=== PATIENT | male | born 1960 | race Caucasian/White ===

== ENCOUNTER 2019-03-26 11:57 | Day surgery (SDC) | payer BC ==
[2019-03-22 13:59] VITALS: BMI 31.5
[2019-03-26] MEDS ORDERED: LIDOCAINE 1% 20 ML VIAL (10MG/ML) FOR IV START INTRADERMA PRN (12:14)
[2019-03-26] MEDS ORDERED: LACTATED RINGERS 1,000 ML IV SCH (12:14)
[2019-03-26 12:20] VITALS: RESP 16; TEMP 98.2
[2019-03-26] MEDS ORDERED: PROPOFOL 10 MG/ML 20 ML VIAL IV ONE (13:01)
--- NOTE | 2019-03-26 13:07 | P.GSHP ---
History of Present Illness H&P Date: 03/26/19 Chief Complaint: Screening colonoscopy This is a 58-year-old male referred from Dr. Sofia juarez. Patient rents today for screening colonoscopy. Past Medical History Past Medical History: Hypertension History of Any Multi-Drug Resistant Organisms: None Reported Past Surgical History: No Surgical Hx Reported Additional Past Surgical History / Comment(s): colonoscopy Past Anesthesia/Blood Transfusion Reactions: No Reported Reaction Smoking Status: Former smoker - Past Family History Mother Family Medical History: No Reported History Medications and Allergies Home Medications Medication Instructions Recorded Confirmed Type Metoprolol Tartrate [Lopressor] 50 mg PO DAILY 03/22/19 03/26/19 History Red Yeast Rice 600 mg PO DAILY 03/22/19 03/26/19 History Ubidecarenone [Co Q-10] 100 mg PO DAILY 03/22/19 03/26/19 History Allergies Allergy/AdvReac Type Severity Reaction Status Date / Time No Known Allergies Allergy Verified 03/22/19 13:53 Surgical - Exam Vital Signs Temp Pulse Resp BP Pulse Ox 98.2 F 77 16 132/85 94 L 03/26/19 12:19 03/26/19 12:19 03/26/19 12:19 03/26/19 12:19 03/26/19 12:19 - General well developed, well nourished - Eyes PERRL - ENT normal pinna - Neck no masses - Respiratory normal expansion - Cardiovascular Rhythm: regular - Abdomen Abdomen: soft Assessment and Plan Assessment: We'll perform screening colonoscopy
--- NOTE | 2019-03-26 13:20 | P.OP ---
Date of Procedure: 03/26/19 Preoperative Diagnosis: Screening colonoscopy Postoperative Diagnosis: Diverticulosis Procedure(s) Performed: Colonoscopy Anesthesia: MAC Surgeon: Dario Delarosa Pathology: none sent Condition: stable Disposition: PACU Description of Procedure: The patient's placed on the endoscopy table in the lateral position. He received IV sedation. Digital rectal exam was performed which revealed no abnormalities. Flexible colonoscope was then placed patient anus and passed rotator entire colon. The ileocecal valve was visualized. The cecum, ascending and transverse colon appeared normal. In the descending; was mild diverticulosis. There is known to diverticulitis. The scope summer back the rectum this appeared normal. Scope was withdrawn for patient.
[2019-03-26 13:42] VITALS: BP 128/86; PULSE 70
== END 2019-03-26 14:22 | disposition home or self-care (01) ==
LOC: ORWHC2ENDO 11:57
PROVIDERS: ATTEND Surgery
DX: Z12.11 Encounter for screening for malignant neoplasm of colon (principal); I10 Essential (primary) hypertension; Z87.891 Personal history of nicotine dependence
CPT/HCPCS: G0121; J2704